=== PATIENT | female | born 1985 | race Caucasian/White ===

== ENCOUNTER 2025-04-17 12:57 | Outpatient (CLI) | payer OTHER | END 2025-04-17 13:14 | disposition home or self-care (01) | LOC: NST 12:57 | PROVIDERS: ATTEND Obstetrics & Gynecology Maternal & Fetal Medicine | DX: Z34.82 Encounter for supervision of other normal pregnancy, second trimester (principal) ==

== ENCOUNTER 2025-05-29 10:09 | Outpatient (CLI) | payer OTHER | END 2025-05-29 10:47 | disposition home or self-care (01) | LOC: NST 10:09 | PROVIDERS: ATTEND Obstetrics & Gynecology Maternal & Fetal Medicine | DX: Z34.83 Encounter for supervision of other normal pregnancy, third trimester (principal) ==